=== PATIENT | female | born 1935 | race Caucasian/White ===

== ENCOUNTER 2016-05-03 06:19 | Day surgery (SDC) | payer MEDICARE, OTHER ==
[~2016-05-03] VITALS: Ht 167.6 cm; Wt 56.0 kg
[2016-05-03] MEDS ORDERED: BUPIVACAINE/PF-EPI 0.25% 1:200K ONE (06:40)
[2016-05-03] MEDS ORDERED: LACTATED RINGERS 1,000 ML IV SCH (07:04)
[2016-05-03 07:06] VITALS: BP 116/73
[2016-05-03] MEDS ORDERED: ATEN50TA41 PO (07:22)
[2016-05-03] MEDS ORDERED: OMEP-110 PO (07:22)
[2016-05-03] MEDS ORDERED: ASPI-496 PO (07:22)
[2016-05-03] MEDS ORDERED: PRAV40TA2 PO (07:22)
[2016-05-03] MEDS ORDERED: ALEN70TA5 PO (07:22)
[2016-05-03] MEDS ORDERED: CITA20TA5 PO (07:22)
[2016-05-03] MEDS ORDERED: EZET10TA3 PO (07:22)
[2016-05-03] MEDS ORDERED: POTA10TA11 PO (07:22)
[2016-05-03] MEDS ORDERED: SCOPOLAMINE PATCH, 1.5MG PATCH.TD72 TD ONE (07:30)
[2016-05-03] MEDS ORDERED: LIDOCAINE 1%, 2ML SQ PRN (07:30)
[2016-05-03] MEDS ORDERED: FENTANYL PF 100 MCG/2ML ONE (07:42)
[2016-05-03] MEDS ORDERED: PROPOFOL 10 MG/ML, 20ML ONE (08:02)
[2016-05-03] MEDS ORDERED: GLYCOPYRROLATE 0.2MG/1ML ONE (08:02)
[2016-05-03] MEDS ORDERED: CEFAZOLIN 1,000 MG ONE (08:02)
[2016-05-03] MEDS ORDERED: ONDANSETRON 2MG/ML, 2ML ONE (08:02)
[2016-05-03] MEDS ORDERED: ROCURONIUM 10 MG/ML ONE (08:02)
[2016-05-03] MEDS ORDERED: DEXAMETHASONE 4 MG/ML, 1ML ONE (08:02)
[2016-05-03] MEDS ORDERED: KETOROLAC 30 MG/1 ML ONE (08:02)
[2016-05-03] MEDS ORDERED: NEOSTIGMINE 1 MG/ML, 10ML ONE (08:02)
[2016-05-03] MEDS ORDERED: HYDROcodone/APAP 7.5-325MG/15ML UDC ONE (08:53)
[2016-05-03] MEDS ORDERED: ALBUTEROL SULFATE 2.5 MG/3 ML NPPB PRN (09:00)
[2016-05-03] MEDS ORDERED: LABETALOL 5MG/ML, 20ML IV PRN (09:00)
[2016-05-03] MEDS ORDERED: METOPROLOL 1 MG/ML, 5ML IV PRN (09:00)
[2016-05-03] MEDS ORDERED: ACETAMINOPHEN 325 MG TABLET PO PRN (09:00)
[2016-05-03] MEDS ORDERED: HYDROcodone/APAP 7.5-325MG/15ML UDC PO PRN (09:00)
[2016-05-03] MEDS ORDERED: ONDANSETRON 2MG/ML, 2ML IVPush PRN (09:00)
[2016-05-03] MEDS ORDERED: hydrALAzine 20 MG/ML, 1ML IV PRN (09:00)
[2016-05-03] MEDS ORDERED: EPHEDRINE 50 MG/ML, 1ML IVPush PRN (09:00)
[2016-05-03] MEDS ORDERED: HYDROmorphone 1 MG/ML, 1ML IV PRN (09:00)
[2016-05-03] MEDS ORDERED: FENTANYL PF 100 MCG/2ML IV PRN (09:00)
== END 2016-05-03 10:55 | disposition home or self-care (01) ==
LOC: OUT 06:19
PROVIDERS: ATTEND Surgery
DX: K80.10 Calculus of gallbladder with chronic cholecystitis without obstruction (principal); I10 Essential (primary) hypertension; E78.5 Hyperlipidemia, unspecified; Z90.710 Acquired absence of both cervix and uterus; Z87.891 Personal history of nicotine dependence; Z82.49 Family history of ischemic heart disease and other diseases of the circulatory system; Z80.3 Family history of malignant neoplasm of breast; Z98.49 Cataract extraction status, unspecified eye; Z96.1 Presence of intraocular lens
CPT/HCPCS: 47562; 88304; 93005; C1729; J0690; J1100; J1885; J2405; J2704; J2710; J3010; J7120; J3490

== ENCOUNTER 2016-05-22 11:42 | Emergency (ER) | payer MEDICARE, OTHER ==
[~2016-05-22] VITALS: Ht 167.6 cm; Wt 56.6 kg
[~2016-05-22 11:42] MED LIST: ALEN70TA5 PO; ASPI-496 PO; ATEN50TA41 PO; CITA20TA5 PO; EZET10TA3 PO; OMEP-110 PO; POTA10TA11 PO; PRAV40TA2 PO
[2016-05-22] MEDS ORDERED: ONDANSETRON 2MG/ML, 2ML ONE (12:21)
[2016-05-22] MEDS ORDERED: MORPHINE SULFATE 4 MG/ML, 1ML ONE (12:21)
[2016-05-22] MEDS ORDERED: ONDANSETRON 2MG/ML, 2ML IVPush ONE (12:30)
[2016-05-22] MEDS ORDERED: MORPHINE SULFATE 4 MG/ML, 1ML IVPush PRN (12:30)
[2016-05-22] MEDS ORDERED: MULT-326 PO (12:50)
[2016-05-22] MEDS ORDERED: FOLI20CA PO (12:50)
[2016-05-22 14:24] VITALS: BP 125/62
== END 2016-05-22 14:52 | disposition home or self-care (01) ==
LOC: ED 12:58
DX: S70.01XA Contusion of right hip, initial encounter (principal); I10 Essential (primary) hypertension; M81.0 Age-related osteoporosis without current pathological fracture; W19.XXXA Unspecified fall, initial encounter; Y93.89 Activity, other specified; Y92.009 Unspecified place in unspecified non-institutional (private) residence as the place of occurrence of the external cause; Y99.8 Other external cause status
CPT/HCPCS: 73502; 96374; 96375; 99284; J2405

== ENCOUNTER → 2016-06-08 | Outpatient (CLI) | payer MEDICARE, OTHER ==
[~2016-06-08] MED LIST changes: +FOLI20CA PO; +MULT-326 PO
== END | disposition home or self-care (01) ==
LOC: RAD 14:01
PROVIDERS: ATTEND Family Medicine
DX: S32.591A Other specified fracture of right pubis, initial encounter for closed fracture (principal); S32.19XA Other fracture of sacrum, initial encounter for closed fracture; M16.11 Unilateral primary osteoarthritis, right hip; M51.36 Other intervertebral disc degeneration, lumbar region; M85.80 Other specified disorders of bone density and structure, unspecified site; S72.091A Other fracture of head and neck of right femur, initial encounter for closed fracture; X58.XXXA Exposure to other specified factors, initial encounter; Y93.89 Activity, other specified; Y92.89 Other specified places as the place of occurrence of the external cause; Y99.8 Other external cause status; Z91.81 History of falling

== ENCOUNTER → 2017-09-20 | Outpatient (CLI) | payer MEDICARE, OTHER ==
[~2017-09-20] MED LIST changes: -CITA20TA5 PO; +CITA20TA6 PO; +EZET10TA18 PO; -EZET10TA3 PO
== END | disposition home or self-care (01) ==
LOC: RAD 15:45
PROVIDERS: ATTEND Family Medicine
DX: M51.36 Other intervertebral disc degeneration, lumbar region (principal)
CPT/HCPCS: 72148

== ENCOUNTER 2018-05-15 21:27 | Emergency (ER) | payer MEDICARE, OTHER ==
[~2018-05-15] VITALS: Ht 165.1 cm; Wt 60.0 kg
[~2018-05-15 21:27] MED LIST changes: -ALEN70TA5 PO; +ALEN70TA6 PO
[2018-05-15 21:28] VITALS: BP 151/81
[2018-05-15] MEDS ORDERED: HYDROcodone/APAP 5/325 TABLET ONE (22:42)
--- NOTE | 2018-05-15 22:50 | NUR ---
DC EDUCATION PROVIDED, PT DEMONSTRATES UNDERSTANDING. PT TO DC BY WHEELCHAIR WITH RN. FRIEND TO TRANSPORT PT HOME
[2018-05-15] MEDS ORDERED: HYDROcodone/APAP 5/325 TABLET PO ONE (23:00)
== END 2018-05-15 22:52 | disposition home or self-care (01) ==
LOC: ED 22:40
DX: S00.83XA Contusion of other part of head, initial encounter (principal); W01.0XXA Fall on same level from slipping, tripping and stumbling without subsequent striking against object, initial encounter; Y93.02 Activity, running; Y92.413 State road as the place of occurrence of the external cause; Y99.8 Other external cause status
CPT/HCPCS: 70450; 70486; 99284